=== PATIENT | male | born 1970 | race Caucasian/White ===

== ENCOUNTER 2023-04-22 23:05 | Emergency (ER) | payer BC ==
[~2023-04-22] VITALS: Ht 190.5 cm; Wt 99.3 kg
[2023-04-22 23:12] VITALS: BP 125/75; PULSE 68; RESP 15; TEMP 97; O2SAT 98
[2023-04-23] MEDS ORDERED: BACITRACIN OINT 500 UNITS/GM PKT TP ONE (00:40)
[2023-04-23] MEDS ORDERED: LIDOCAINE/EPI MPF 1%1:200000 30 ML VIAL INJ ONE (01:02)
[2023-04-23] MEDS ORDERED: NAPR-54 PO (01:05)
[2023-04-23] MEDS ORDERED: BACI-418 TP (01:05)
[2023-04-23] MEDS ORDERED: LIDOCAINE/EPI 2% 1:100000 20 ML VIAL INJ ONE (01:05)
[2023-04-23 02:00] VITALS: BP 105/71; PULSE 56; RESP 12; TEMP 97.7; O2SAT 97
== END 2023-04-23 02:00 | disposition home or self-care (01) ==
LOC: MED 23:05
DX: S01.81XA Laceration without foreign body of other part of head, initial encounter (principal); Z98.890 Other specified postprocedural states; Z79.2 Long term (current) use of antibiotics; Z79.1 Long term (current) use of non-steroidal anti-inflammatories (NSAID); W01.198A Fall on same level from slipping, tripping and stumbling with subsequent striking against other object, initial encounter; Y93.02 Activity, running; Y92.89 Other specified places as the place of occurrence of the external cause; Y99.8 Other external cause status
CPT/HCPCS: 12011; 99282; J2001